=== PATIENT | male | born 1940 | race Caucasian/White ===

== ENCOUNTER 2016-04-28 08:15 | Day surgery (SDC) | payer OTHER ==
[2016-04-28] MEDS ORDERED: ALCAINE or OPHTHETIC 1 DOSE AFFEYE ONE (08:28)
[2016-04-28] MEDS ORDERED: MYDRIACIL OPHTH 1 DOSE AFFEYE ONE (08:30)
[2016-04-28] MEDS ORDERED: AK-DILATE 10% OPHTH 1 DOSE AFFEYE ONE (08:30)
[2016-04-28] MEDS ORDERED: TETRACAINE 0.5% OPHTH 1 DOSE AFFEYE ONE (09:24)
[2016-04-28 11:14] VITALS: BP 120/72
== END 2016-04-28 09:45 | disposition home or self-care (01) ==
LOC: SURG1 08:15
PROVIDERS: ATTEND Ophthalmology
PROC: 085F3ZZ Destruction of Left Retina, Percutaneous Approach (ICD-10-PCS; principal; 2016-04-28 09:00)
DX: E11.3312 Type 2 diabetes mellitus with moderate nonproliferative diabetic retinopathy with macular edema, left eye (principal)